=== PATIENT | male | born 1940 | race Caucasian/White ===

== ENCOUNTER 2019-02-20 05:32 | Day surgery (SDC) | payer MEDICARE, BC ==
[~2019-02-20] VITALS: Ht 175.3 cm; Wt 112.3 kg
[2019-02-20] VITALS (10 sets, daily range): BP systolic 145–174; BP diastolic 63–82; PULSE 59–82; TEMP 97.3–97.6
[2019-02-20] MEDS ORDERED: XANAX 0.5MG0.5 MG PO (06:36)
[2019-02-20] MEDS ORDERED: ZYLOPRIM 100MG100 MG PO (06:36)
[2019-02-20] MEDS ORDERED: PACERONE100 MG PO (06:37)
[2019-02-20] MEDS ORDERED: ASTELIN NASAL S34 ML NS ×2 (06:38→06:39)
[2019-02-20] MEDS ORDERED: NATURAL VITAM1000 MG PO (06:38)
[2019-02-20] MEDS ORDERED: PLAVIX 75MG TAB75 MG PO (06:40)
[2019-02-20] MEDS ORDERED: FERROUS GL325 MG/TAB PO (06:41)
[2019-02-20] MEDS ORDERED: GLUCOTROL 5M5 MG/TAB PO (06:42)
[2019-02-20] MEDS ORDERED: SYNTHROID0.075 MG/T PO (06:43)
[2019-02-20] MEDS ORDERED: GLUCOPHAGE1000 MG PO (06:44)
[2019-02-20] MEDS ORDERED: LOPRESSOR 225 MG/TAB PO (06:46)
[2019-02-20] MEDS ORDERED: MASON NATURAL1200 MG PO (06:47)
[2019-02-20] MEDS ORDERED: MULTIPLE VITAMI1 CAP PO (06:47)
[2019-02-20] MEDS ORDERED: MIRAPEX 1MG PO (06:48)
[2019-02-20] MEDS ORDERED: CRESTOR20 MG PO (06:52)
[2019-02-20] MEDS ORDERED: ZOLOFT 25MG25 MG PO (06:54)
[2019-02-20] MEDS ORDERED: DEMADEX 20MG20 M1 PO (07:05)
[2019-02-20] MEDS ORDERED: COUMADIN 3MG3 MG/TAB PO (07:06)
--- NOTE | 2019-02-20 09:45 | NUR ---
Patient returns to room 8 from PACU and arouses to verbal stimuli. T97.6. Room air sats 94%. Dozes with eyes closed when not disturbed then grimaces and complains of "belly pain". Abdomen soft and rounded. IV infusing left hand. Assisted to the edge of cart to stand and use urinal. Slight nausea with movement and subsides. Able to stany at bedside and voids 100cc's hanson red urine with moderate sized clot noted. Lays back on cart. Siderails up x2 and call light in reach. IV to INT. Rests with eyes closed and family in room. Call light in reach.
--- NOTE | 2019-02-20 10:00 | NUR ---
Resting and occasionally arouses and complains of belly pain. States feels like spasms. Will continue to monitor. Family in room.
--- NOTE | 2019-02-20 10:15 | NUR ---
Patient is resting when not disturbed and family in room.
--- NOTE | 2019-02-20 10:30 | NUR ---
Assisted to stand by the cart and voids 100cc's hanson red urine and no clots noted with this voiding. Patient wishes to set in recliner and assisted to recliner in room. Kept on oxyen. Rests easily with eyes closed when not disturbed.
--- NOTE | 2019-02-20 10:45 | NUR ---
Resting in recliner with eyes closed. Family in room and call light in reach.
--- NOTE | 2019-02-20 11:15 | NUR ---
Resting in recliner and no further complaints. More relaxed with snoring respirations.
--- NOTE | 2019-02-20 11:45 | NUR ---
More awake and states that he is feeling better. Eating ice cream. Family in room.
--- NOTE | 2019-02-20 12:00 | NUR ---
Ambulatory to the restrooom and tolerated activity well. Passed gas only, no urine. States that he is feeling better.
--- NOTE | 2019-02-20 12:15 | NUR ---
Sitting in recliner and eating ice cream and drinking orange juice. Room air sats 97-100%. States that he is feeling better.
--- NOTE | 2019-02-20 12:45 | NUR ---
Resting and has been drinking Sprite and juice.
--- NOTE | 2019-02-20 13:10 | NUR ---
Dr. Shaver notified that patient continues to have dark red urine when he urinates. Patient maybe discharged to home with the instructions to force fluids and that he may resume Plavix and Coumadin on 02/21/19. Sangeetha voiced wishes to have pain medication available to him at home. [place] script will be available to be picked up at the office.
--- NOTE | 2019-02-20 13:27 | NUR ---
Patient is requesting pain medication prior to discharge and medicated with Pearl 5mg one tab for pain rating at 5/10.
--- NOTE | 2019-02-20 13:30 | NUR ---
Patient states that he is feeling better and wishes to go home. Stresssed importance of forcing fluids to clear urine and limit activity and no driving for 24 hours. Also cautioned to avoid being on tractor and avoid jarring activity. Voices understanding of this.
--- NOTE | 2019-02-20 13:42 | NUR ---
Esperanza dismissed to home driven by daughter and taken to the vehicle per wheelchair and assisted into car.
--- NOTE | 2019-02-20 13:42 | NUR ---
Dismissal instructions signed and provided copy of these.
== END 2019-02-20 13:42 | disposition home or self-care (01) ==
LOC: SDCO 05:32
DX: R31.0 Gross hematuria (principal); I48.91 Unspecified atrial fibrillation; F32.9 Major depressive disorder, single episode, unspecified; F41.9 Anxiety disorder, unspecified; I25.10 Atherosclerotic heart disease of native coronary artery without angina pectoris; M11.20 Other chondrocalcinosis, unspecified site; E11.22 Type 2 diabetes mellitus with diabetic chronic kidney disease; I12.9 Hypertensive chronic kidney disease with stage 1 through stage 4 chronic kidney disease, or unspecified chronic kidney disease; N18.9 Chronic kidney disease, unspecified; K21.9 Gastro-esophageal reflux disease without esophagitis; E78.5 Hyperlipidemia, unspecified; E03.9 Hypothyroidism, unspecified; G47.33 Obstructive sleep apnea (adult) (pediatric); E11.42 Type 2 diabetes mellitus with diabetic polyneuropathy; Z79.84 Long term (current) use of oral hypoglycemic drugs; Z79.02 Long term (current) use of antithrombotics/antiplatelets; Z79.01 Long term (current) use of anticoagulants; Z87.891 Personal history of nicotine dependence; Z95.0 Presence of cardiac pacemaker; M19.90 Unspecified osteoarthritis, unspecified site
CPT/HCPCS: C1769; J1100; J1170; J2405; J2550; J2704; J3010; Q9967

== ENCOUNTER 2020-02-06 11:15 | Day surgery (SDC) | payer MEDICARE, BC ==
[~2020-02-06] VITALS: Ht 175.3 cm; Wt 110.4 kg
[~2020-02-06 11:15] MED LIST: ASTELIN NASAL S34 ML NS; COUMADIN 3MG3 MG/TAB PO; CRESTOR20 MG PO; DEMADEX 20MG20 M1 PO; FERROUS GL325 MG/TAB PO; GLUCOPHAGE1000 MG PO; GLUCOTROL 5M5 MG/TAB PO; LOPRESSOR 225 MG/TAB PO; MASON NATURAL1200 MG PO; MIRAPEX 1MG PO; MULTIPLE VITAMI1 TA5 PO; NATURAL VITAM1000 MG PO; PACERONE100 MG PO; PACERONE200 MG PO; PLAVIX 75MG TAB75 MG PO; SYNTHROID0.075 MG/T PO; XANAX 0.5MG0.5 MG PO; ZOLOFT 25MG25 MG PO; ZYLOPRIM 100MG100 MG PO
--- NOTE | 2020-02-06 11:45 | NUR ---
Sterling Beckett CRNA and Dr. Shaver were called to see if the patient needed to have needed to have a PT-INR drawn prior to surgery due to his use of coumadin nightly. The patient stated he hasn't had any "for a couple days". Both surgeon and anesthesia provider are ok to not draw a PT-INR prior to surgery. Will continue to monitor the patient.
[2020-02-06 12:07] VITALS: BP 185/71; PULSE 62; TEMP 97
[2020-02-06] MEDS ORDERED: SYNTHROID0.175 MG PO (12:30)
[2020-02-06 14:38] LABS: PERITONEAL -POLYMORPHONUCLEAR 83.3 % (0-25); PERITONEAL FLUID RBC 100000 /mm3 (0-0)
[2020-02-06 14:50] VITALS: BP 178/79; PULSE 62; TEMP 97.6
--- NOTE | 2020-02-06 14:50 | NUR ---
The patient arrived back to [facility] from the recovery room at this time. The patient appears alert and oriented and denies any pain or nausea at this time. The patient's post operative vital signs were started at this time. The patient agrees to try some apple juice and a muffin. The patient's was brought back to be at his bedside at this time. Call light is within reach. Will continue to monitor the patient.
[2020-02-06 15:05] VITALS: BP 170/64; PULSE 58
--- NOTE | 2020-02-06 15:05 | NUR ---
The patient appears to be tolerating the juice and muffin well. Vital signs appear stable. Will continue to monitor the patient.
[2020-02-06 15:20] VITALS: BP 187/70; PULSE 59
--- NOTE | 2020-02-06 15:20 | NUR ---
The patient denies the need to void at this time. The patient did agree to try more apple juice at this time to help his need to void. The patient's remains at his bedside. Vital signs continue to appear stable to baseline. Will continue to monitor the patient.
[2020-02-06 15:35] VITALS: BP 195/68; PULSE 59
--- NOTE | 2020-02-06 15:35 | NUR ---
Resting and tolerating fluids.
--- NOTE | 2020-02-06 15:40 | NUR ---
Assisted up to the bathroom and is able to void and returns to room. IV discontinued and site is free of redness.
--- NOTE | 2020-02-06 15:55 | NUR ---
Given dismissal instructions and voices understanding of home cares and follow up as scheduled.
--- NOTE | 2020-02-06 16:01 | NUR ---
Patient dismissed to home driven by spouse and taken to the front door per wheelchair and assisted into vehicle by this RN with instructions in hand.
== END 2020-02-06 16:01 | disposition home or self-care (01) ==
LOC: SDCO 11:15
PROVIDERS: Urology
DX: N13.30 Unspecified hydronephrosis (principal); R31.9 Hematuria, unspecified; I25.10 Atherosclerotic heart disease of native coronary artery without angina pectoris; Z95.1 Presence of aortocoronary bypass graft; Z95.0 Presence of cardiac pacemaker; I48.91 Unspecified atrial fibrillation; I10 Essential (primary) hypertension; G47.33 Obstructive sleep apnea (adult) (pediatric); M19.90 Unspecified osteoarthritis, unspecified site; G20 Parkinson's disease; E03.9 Hypothyroidism, unspecified; E11.9 Type 2 diabetes mellitus without complications; Z87.891 Personal history of nicotine dependence; Z85.828 Personal history of other malignant neoplasm of skin
CPT/HCPCS: C1769; J0690; J2704; J3010; J7030; Q9967

== ENCOUNTER 2020-03-05 07:58 | Day surgery (SDC) | payer MEDICARE, BC ==
[2020-03-05] VITALS (7 sets, daily range): BP systolic 158–192; BP diastolic 54–86; PULSE 59–60; TEMP 97.1–98
[~2020-03-05] VITALS: Ht 175.3 cm; Wt 113.2 kg
[~2020-03-05 07:58] MED LIST changes: +SYNTHROID0.175 MG PO
--- NOTE | 2020-03-05 11:40 | NUR ---
PATIENT TRANSPORTED PER CART TO [facility] ROOM 2 ACCOMPANIED BY PACU STAFF. MONITORS REAPPLIED. O2 AT 2 LITERS CONTINUED. PATIENT TALKING WITH STAFF AND . PATIENT DENIES DISCOMFORT AND NAUSEA. PATIENT GIVEN MUFFIN AND ORANGE JUICE. AT BEDSIDE.
--- NOTE | 2020-03-05 11:40 | NUR ---
PATIENT REQUESTS TO AMBULATED TO BATHROOM. PATIENT AMBULATED WITH 1 ASSIST TO BATHROOM WITH STEADY GAIT. PATIENT ABLE TO VOID WITHOUT PROBLEMS. PATIENT SITS ON SIDE OF CART EATING MUFFIN AND DRINKING OJ. AT BEDSIDE.
--- NOTE | 2020-03-05 12:05 | NUR ---
VSS ON ROOM AIR. PATIENT EATING AND DRINKING WITHOUT PROBLEMS. PATIENT ENJOYED MUFFIN. PATIENT CONTINUES SITTING ON SIDE OF CART. DENIES DISCOMFORT AND NAUSEA.
--- NOTE | 2020-03-05 12:16 | NUR ---
VSS ON ROOM AIR. PATIENT DRINKING ORANGE JUICE. PATIENT DENIES DISCOMFORT AND NAUSEA. PATIENT SITTING ON SIDE OF CART. TALKING WITH .
--- NOTE | 2020-03-05 12:35 | NUR ---
VSS ON ROOM AIR. PATIENT TALKING WITH . DENIES DISCOMFORT AND NAUSEA. IV SITE DC'D WITH CATHETER TIP INTACT AND PRESSURE AND BANDGE APPLIED. 1240 DISCHARGE INSTRUCTIONS GIVEN VERBAL AND DISCHARGE PACKET GIVEN TO . QUESTIONS ANWSERED AND PATIENT AND VOICED UNDERSTANDING. PATIENT CHANGES INTO STREET CLOTHES. 1250 PATIENT DISCHARGED PER WHEELCHAIR ACCOMPANIED BY AMB STAFF TO POV. WITH DISCHARGE PACKET.
== END 2020-03-05 12:50 | disposition home or self-care (01) ==
LOC: SDCO 07:58
DX: N13.5 Crossing vessel and stricture of ureter without hydronephrosis (principal); F32.9 Major depressive disorder, single episode, unspecified; F41.9 Anxiety disorder, unspecified; I25.10 Atherosclerotic heart disease of native coronary artery without angina pectoris; I12.9 Hypertensive chronic kidney disease with stage 1 through stage 4 chronic kidney disease, or unspecified chronic kidney disease; E11.22 Type 2 diabetes mellitus with diabetic chronic kidney disease; N18.3 Chronic kidney disease, stage 3 (moderate); E78.5 Hyperlipidemia, unspecified; K21.9 Gastro-esophageal reflux disease without esophagitis; E03.9 Hypothyroidism, unspecified; E79.0 Hyperuricemia without signs of inflammatory arthritis and tophaceous disease; D72.829 Elevated white blood cell count, unspecified; E66.9 Obesity, unspecified; G47.33 Obstructive sleep apnea (adult) (pediatric); M19.90 Unspecified osteoarthritis, unspecified site; I48.0 Paroxysmal atrial fibrillation; E11.42 Type 2 diabetes mellitus with diabetic polyneuropathy; G25.81 Restless legs syndrome; Z79.84 Long term (current) use of oral hypoglycemic drugs; Z79.01 Long term (current) use of anticoagulants; Z95.0 Presence of cardiac pacemaker; Z85.828 Personal history of other malignant neoplasm of skin; Z87.891 Personal history of nicotine dependence; Z20.828 Contact with and (suspected) exposure to other viral communicable diseases
CPT/HCPCS: C1769; J2405; J2704; J3010; J7030; Q9967